=== PATIENT | female | born 1950 ===

== ENCOUNTER 2021-08-22 13:13 | Inpatient (IN) | payer MEDICARE ==
[2021-08-22 14:05] LABS: #Lymphocytes 1.4 thou/uL (1.20-3.40); #Monocytes 1.2 thou/uL (0.11-0.59); #Neutrophils 10.3 thou/uL (1.40-6.50); %Basophils 0.3 % (0.0-1.0); %Eosinophils 0.3 % (0.0-10.0); %Lymphocytes 10.5 % (21.0-51.0); %Monocytes 9.4 % (0.0-10.0); %Neutrophils 79.5 % (42.0-75.0); Hemoglobin 8.1 g/dL (12.0-16.0); Mean Corpuscular HGB CONC 31.5 g/dL (32.0-36.0); Mean Corpuscular Hemoglobin 29.3 pg (27.0-31.0); Mean Corpuscular Volume 92.9 fL (78.0-98.0); Mean Platelet Volume 7.7 fL (7.4-10.4); Platelet Count 358 thou/uL (130-400); RBC Distribution Width 13.8 % (11.5-14.5); Red Blood Cell (RBC) Count 2.75 mill/uL (4.20-5.40); White Blood Cell (WBC) Count 12.9 thou/uL (4.8-10.8)
[2021-08-22 14:21] LABS: ALT (SGPT) 28 U/L (8-55); AST (SGOT) 40 U/L (5-34); Albumin 3.4 g/dL (3.4-4.8); Alkaline Phosphatase 87 U/L (40-110); Anion Gap 17 mmol/L (10-20); BUN (Urea Nitrogen) 20 mg/dL (9.8-20.1); Bilirubin, Total 0.7 mg/dL (0.2-1.2); Calc. Creatinine Clearance 0 mL/min (70-130); Calcium 8.7 mg/dL (7.8-10.44); Carbon Dioxide 25 mmol/L (23-31); Chloride 95 mmol/L (98-107); Globulin 3.9 g/dL (2.4-3.5); Glucose 139 mg/dL (80-115); Potassium 3.1 mmol/L (3.5-5.1); Protein, Total 7.3 g/dL (5.8-8.1); Sodium 134 mmol/L (136-145)
[2021-08-22 14:43] LABS: CKMB 1.3 ng/mL (0-6.6)
[2021-08-22] MEDS ORDERED: Dextrose 5% in Water 1,000 ML IV PRN (17:02)
[2021-08-22] MEDS ORDERED: Dextrose 50% Abboject 50 ML SYRINGE SLOW IVP PRN (17:02)
[2021-08-22] MEDS ORDERED: Senokot S 8.6-50 MG TAB PO PRN (17:11)
[2021-08-22] MEDS ORDERED: Cefepime 1 GM in Sodium Chloride 0.9% 100 ML IVPB SCH ×2 (18:00→23:45)
[2021-08-22] MEDS ORDERED: Vancomycin 1 GM in Premix Bag 1 BAG IVPB SCH (18:00)
[2021-08-22 18:53] LABS: SARS-CoV-2 NAA Rapid Test Not Detected (NotDetected)
[2021-08-22] MEDS: Carvedilol 6.25 MG TAB PO SCH (21:40)
[2021-08-22] MEDS: Atorvastatin Calcium 40 MG TAB PO SCH (21:44)
[2021-08-22] MEDS: Famotidine 20 MG TAB PO SCH (21:44)
[2021-08-22] MEDS: Gabapentin 100 MG CAP PO SCH (21:44)
[2021-08-22] MEDS: Nicotine 14 MG PATCH TD SCH ×2 (21:45→21:47)
[2021-08-22] MEDS ORDERED: Vancomycin 1.5 GRAM/300 ML BAG 1.5 GM in Premix Bag 1 BAG IVPB SCH (23:45)
[2021-08-22] MEDS ORDERED: Cefepime 2 GM in Sodium Chloride 0.9% 100 ML IVPB SCH (23:45)
[2021-08-22 23:53] VITALS: BMI 29.9
[2021-08-23] MEDS ORDERED: Vancomycin Diaylsis Sliding Scale (Wt 71-99) FS SCH (00:15)
[2021-08-23] MEDS: HYDROcodone/Acetaminophen 5/325 mg Tablet PO PRN ×2 (01:44→18:44)
[2021-08-23 05:16] LABS: #Eosinphils 0.1 thou/uL (0.0-0.7); #Lymphocytes 1.6 thou/uL (1.20-3.40); #Monocytes 1.4 thou/uL (0.11-0.59); #Neutrophils 11.9 thou/uL (1.40-6.50); %Basophils 0.1 % (0.0-1.0); %Eosinophils 0.4 % (0.0-10.0); %Lymphocytes 10.7 % (21.0-51.0); %Monocytes 9.4 % (0.0-10.0); %Neutrophils 79.4 % (42.0-75.0); Hemoglobin 7.8 g/dL (12.0-16.0); Mean Corpuscular HGB CONC 31.3 g/dL (32.0-36.0); Mean Corpuscular Hemoglobin 29.3 pg (27.0-31.0); Mean Corpuscular Volume 93.6 fL (78.0-98.0); Mean Platelet Volume 7.7 fL (7.4-10.4); Platelet Count 387 thou/uL (130-400); Red Blood Cell (RBC) Count 2.65 mill/uL (4.20-5.40)
[2021-08-23 05:38] LABS: ALT (SGPT) 24 U/L (8-55); AST (SGOT) 34 U/L (5-34); Albumin 3.2 g/dL (3.4-4.8); Alkaline Phosphatase 77 U/L (40-110); Anion Gap 20 mmol/L (10-20); BUN (Urea Nitrogen) 25 mg/dL (9.8-20.1); Bilirubin, Total 0.7 mg/dL (0.2-1.2); Calc. Creatinine Clearance 16 mL/min (70-130); Calcium 8.7 mg/dL (7.8-10.44); Carbon Dioxide 23 mmol/L (23-31); Chloride 96 mmol/L (98-107); Globulin 3.8 g/dL (2.4-3.5); Glucose 79 mg/dL (80-115); Potassium 3.1 mmol/L (3.5-5.1); Sodium 136 mmol/L (136-145)
[2021-08-23 07:11] LABS: Vancomycin, Random 29.3 ug/mL (See Comment)
[2021-08-23] MEDS: Carvedilol 6.25 MG TAB PO SCH ×2 (08:06→18:45)
[2021-08-23] MEDS ORDERED: Midazolam HCl 2 mg/2 ml Vial ONE (10:40)
[2021-08-23] MEDS ORDERED: Fentanyl 100 MCG/2 ML VIAL ONE (10:40)
[2021-08-23] MEDS ORDERED: Bupivacaine PF 0.5% 30 ML VIAL ONE (11:02)
[2021-08-23] MEDS ORDERED: Heparin 5,000 UNITS/ML VIAL ONE (11:02)
[2021-08-23] MEDS ORDERED: Protamine Sulfate 50 MG/5 ML VIAL ONE (11:02)
[2021-08-23] MEDS ORDERED: Lidocaine 1% w/Epinephrine 1:100K 20 ML VIAL ONE (11:02)
[2021-08-23] MEDS ORDERED: fentaNYL Citrate/PF 100 MCG/2 ML SYRINGE ONE (11:09)
[2021-08-23] MEDS ORDERED: Ondansetron PF 4 MG/2 ML Vial ONE (11:34)
[2021-08-23] MEDS ORDERED: PROPOFOL 200 MG/20 ML VIAL ONE (11:34)
[2021-08-23] MEDS ORDERED: Lidocaine 1% PF 5 ML VIAL ONE (11:34)
[2021-08-23] MEDS ORDERED: Bupivacaine HCl 0.5%/Epinephrine 1:200,000/PF 30 ml Vial ONE (11:34)
[2021-08-23] MEDS ORDERED: Ondansetron HCl/PF 4 MG/2 ML Vial IVP PRN (13:40)
[2021-08-23] MEDS ORDERED: Promethazine HCl 25 MG/ML VIAL IVPB PRN (13:40)
[2021-08-23] MEDS ORDERED: Promethazine HCl 25 MG/ML VIAL IM PRN (13:40)
[2021-08-23] MEDS: Enoxaparin Sodium 30 MG/0.3 ML SYRINGE SC SCH (14:21)
[2021-08-23] MEDS: Clopidogrel Bisulfate 75 MG TAB PO SCH (14:21)
[2021-08-23] MEDS: Gabapentin 100 MG CAP PO SCH ×3 (14:21→20:15)
[2021-08-23] MEDS: Aspirin 81 mg Enteric Coated Tablet PO SCH (14:21)
[2021-08-23] MEDS: Amlodipine 10 MG TAB PO SCH (17:40)
[2021-08-23] MEDS: Nicotine 14 MG PATCH TD SCH (17:40)
[2021-08-23 18:49] LABS: HBSAB Concentration Less than 8.00 mIU/mL; HBSAg Index 0.25 S/CO (0-0.99); Hep B Surf AB Non-Reactive (NonReactive); Hep B Surf Ag Non-Reactive S/CO (NonReactive)
[2021-08-23] MEDS: Atorvastatin Calcium 40 MG TAB PO SCH (20:15)
[2021-08-23] MEDS: Famotidine 20 MG TAB PO SCH (20:15)
[2021-08-23] MEDS: Cefepime 0.5 GM in Sodium Chloride 0.9% 100 ML IVPB SCH (23:44)
[2021-08-24] MEDS: HYDROcodone/Acetaminophen 5/325 mg Tablet PO PRN ×4 (05:21→21:37)
[2021-08-24 05:51] LABS: #Eosinphils 0.2 thou/uL (0.0-0.7); #Lymphocytes 0.9 thou/uL (1.20-3.40); #Neutrophils 11.1 thou/uL (1.40-6.50); %Basophils 0.1 % (0.0-1.0); %Eosinophils 1.6 % (0.0-10.0); %Lymphocytes 6.7 % (21.0-51.0); %Monocytes 7.3 % (0.0-10.0); %Neutrophils 84.2 % (42.0-75.0); Hemoglobin 9.4 g/dL (12.0-16.0); Mean Corpuscular HGB CONC 31.6 g/dL (32.0-36.0); Mean Corpuscular Hemoglobin 28.7 pg (27.0-31.0); Mean Corpuscular Volume 90.8 fL (78.0-98.0); Mean Platelet Volume 7.9 fL (7.4-10.4); Platelet Count 357 thou/uL (130-400); Red Blood Cell (RBC) Count 3.26 mill/uL (4.20-5.40); White Blood Cell (WBC) Count 13.2 thou/uL (4.8-10.8)
[2021-08-24 06:09] LABS: Anion Gap 20 mmol/L (10-20); BUN (Urea Nitrogen) 36 mg/dL (9.8-20.1); Calc. Creatinine Clearance 13 mL/min (70-130); Calcium 8.2 mg/dL (7.8-10.44); Carbon Dioxide 22 mmol/L (23-31); Chloride 98 mmol/L (98-107); Glucose 95 mg/dL (80-115); Potassium 3.5 mmol/L (3.5-5.1); Sodium 136 mmol/L (136-145)
[2021-08-24] MEDS: Carvedilol 6.25 MG TAB PO SCH ×2 (08:23→19:16)
[2021-08-24] MEDS: Amlodipine 10 MG TAB PO SCH (08:24)
[2021-08-24] MEDS: Aspirin 81 mg Enteric Coated Tablet PO SCH (08:26)
[2021-08-24] MEDS: Clopidogrel Bisulfate 75 MG TAB PO SCH (08:26)
[2021-08-24] MEDS: Gabapentin 100 MG CAP PO SCH ×3 (08:27→20:37)
[2021-08-24] MEDS: Enoxaparin Sodium 30 MG/0.3 ML SYRINGE SC SCH (08:28)
[2021-08-24] MEDS ORDERED: Epoetin (ESRD) 10,000 UNITS/ML VIAL IVP SCH (08:30)
[2021-08-24] MEDS ORDERED: Heparin 10,000 UNITS/ 10 ML VIAL ONE (08:47)
[2021-08-24 11:26] LABS: Vancomycin, Random 19.5 ug/mL (See Comment)
[2021-08-24] MEDS ORDERED: Vancomycin HCl 500 MG in Sodium Chloride 0.9% 100 ML IVPB SCH (17:00)
[2021-08-24] MEDS: Nicotine 14 MG PATCH TD SCH (19:17)
[2021-08-24] MEDS: Acetaminophen 325 MG TAB PO PRN (19:17)
[2021-08-24] MEDS: Atorvastatin Calcium 40 MG TAB PO SCH (20:37)
[2021-08-24] MEDS: Famotidine 20 MG TAB PO SCH (20:37)
[2021-08-24] MEDS: Cefepime 0.5 GM in Sodium Chloride 0.9% 100 ML IVPB SCH ×2 (23:29→23:53)
[2021-08-25 05:25] LABS: #Eosinphils 0.1 thou/uL (0.0-0.7); #Lymphocytes 1.6 thou/uL (1.20-3.40); #Monocytes 1.3 thou/uL (0.11-0.59); #Neutrophils 9.6 thou/uL (1.40-6.50); %Basophils 0.2 % (0.0-1.0); %Eosinophils 0.6 % (0.0-10.0); %Lymphocytes 12.5 % (21.0-51.0); %Monocytes 10.1 % (0.0-10.0); %Neutrophils 76.6 % (42.0-75.0); Hemoglobin 9.2 g/dL (12.0-16.0); Mean Corpuscular HGB CONC 31.6 g/dL (32.0-36.0); Mean Corpuscular Hemoglobin 28.9 pg (27.0-31.0); Mean Corpuscular Volume 91.4 fL (78.0-98.0); Mean Platelet Volume 8.2 fL (7.4-10.4); Platelet Count 353 thou/uL (130-400); RBC Distribution Width 14.6 % (11.5-14.5); White Blood Cell (WBC) Count 12.6 thou/uL (4.8-10.8)
[2021-08-25 05:49] LABS: Anion Gap 16 mmol/L (10-20); BUN (Urea Nitrogen) 17 mg/dL (9.8-20.1); Calc. Creatinine Clearance 23 mL/min (70-130); Calcium 8.4 mg/dL (7.8-10.44); Carbon Dioxide 26 mmol/L (23-31); Chloride 98 mmol/L (98-107); Glucose 127 mg/dL (80-115); Potassium 3.4 mmol/L (3.5-5.1); Sodium 137 mmol/L (136-145)
[2021-08-25] MEDS: Aspirin 81 mg Enteric Coated Tablet PO SCH (08:20)
[2021-08-25] MEDS: Clopidogrel Bisulfate 75 MG TAB PO SCH (08:21)
[2021-08-25] MEDS: Gabapentin 100 MG CAP PO SCH ×3 (08:21→20:00)
[2021-08-25] MEDS: Amlodipine 10 MG TAB PO SCH (08:22)
[2021-08-25] MEDS: Carvedilol 6.25 MG TAB PO SCH ×2 (08:22→17:08)
[2021-08-25] MEDS: Enoxaparin Sodium 30 MG/0.3 ML SYRINGE SC SCH (08:22)
[2021-08-25] MEDS: HYDROcodone/Acetaminophen 5/325 mg Tablet PO PRN ×3 (08:22→23:20)
[2021-08-25] MEDS: Triple Antibiotic Oint 1 GM Packet TOP SCH (08:28)
[2021-08-25] MEDS ORDERED: Potassium Chloride 20 MEQ TAB PO SCH (12:15)
[2021-08-25] MEDS: Nicotine 14 MG PATCH TD SCH (19:35)
[2021-08-25] MEDS: Atorvastatin Calcium 40 MG TAB PO SCH (19:59)
[2021-08-25] MEDS: Famotidine 20 MG TAB PO SCH (20:01)
[2021-08-25] MEDS: Cefepime 0.5 GM, Admixture Fee 1 EACH in Sodium Chloride 0.9% 100 ML IVPB SCH (23:19)
[2021-08-26 07:36] LABS: Vancomycin, Random 16.1 ug/mL (See Comment)
[2021-08-26] MEDS: NIFEdipine XL 30 MG TAB PO SCH (08:39)
[2021-08-26] MEDS: Aspirin 81 mg Enteric Coated Tablet PO SCH (08:40)
[2021-08-26] MEDS: Clopidogrel Bisulfate 75 MG TAB PO SCH (08:40)
[2021-08-26] MEDS: Triple Antibiotic Oint 1 GM Packet TOP SCH (08:41)
[2021-08-26] MEDS: Carvedilol 6.25 MG TAB PO SCH ×2 (08:41→20:00)
[2021-08-26] MEDS: Gabapentin 100 MG CAP PO SCH ×3 (08:41→20:02)
[2021-08-26] MEDS: Enoxaparin Sodium 30 MG/0.3 ML SYRINGE SC SCH (08:42)
[2021-08-26] MEDS ORDERED: Heparin 10,000 UNITS/ 10 ML VIAL ONE (08:49)
[2021-08-26] MEDS: Insulin Regular 300 UNITS/3 ML VIAL SC PRN (12:10)
[2021-08-26] MEDS ORDERED: Vancomycin HCl 500 MG in Sodium Chloride 0.9% 100 ML IVPB SCH (17:00)
[2021-08-26] MEDS: Epoetin (ESRD) 10,000 UNITS/ML VIAL IVP SCH (18:42)
[2021-08-26] MEDS: Nicotine 14 MG PATCH TD SCH (20:02)
[2021-08-26] MEDS: Atorvastatin Calcium 40 MG TAB PO SCH (20:02)
[2021-08-26] MEDS: Famotidine 20 MG TAB PO SCH (20:02)
[2021-08-26] MEDS: HYDROcodone/Acetaminophen 5/325 mg Tablet PO PRN (20:03)
[2021-08-26] MEDS: Cefepime 0.5 GM, Admixture Fee 1 EACH in Sodium Chloride 0.9% 100 ML IVPB SCH (22:14)
[2021-08-27] MEDS ORDERED: Iopamidol 370 76% 50 ML VIAL FS ONE (08:44)
[2021-08-27] MEDS: Triple Antibiotic Oint 1 GM Packet TOP SCH (09:00)
[2021-08-27] MEDS: Gabapentin 100 MG CAP PO SCH ×3 (09:03→20:53)
[2021-08-27] MEDS: Carvedilol 6.25 MG TAB PO SCH ×2 (09:03→18:38)
[2021-08-27] MEDS: Enoxaparin Sodium 30 MG/0.3 ML SYRINGE SC SCH (09:30)
[2021-08-27] MEDS: Aspirin 81 mg Enteric Coated Tablet PO SCH (09:30)
[2021-08-27] MEDS: NIFEdipine XL 30 MG TAB PO SCH (09:30)
[2021-08-27] MEDS: Clopidogrel Bisulfate 75 MG TAB PO SCH (09:30)
[2021-08-27] MEDS ORDERED: hydrALAZINE 20 MG/ML VIAL ONE (10:01)
[2021-08-27] MEDS ORDERED: Fentanyl 100 MCG/2 ML VIAL ONE (10:28)
[2021-08-27] MEDS: Fentanyl 100 MCG/2 ML VIAL SLOW IVP PRN (10:29)
[2021-08-27] MEDS ORDERED: HYDROcodone/Acetaminophen 5/325 mg Tablet ONE (11:12)
[2021-08-27] MEDS: HYDROcodone/Acetaminophen 5/325 mg Tablet PO PRN (11:13)
[2021-08-27] MEDS ORDERED: [UNRECOGNIZED DRUG - REMARK] IVPB PRN (14:30)
[2021-08-27 15:44] LABS: #Eosinphils 0.1 thou/uL (0.0-0.7); #Lymphocytes 1.4 thou/uL (1.20-3.40); #Neutrophils 8.5 thou/uL (1.40-6.50); %Basophils 0.2 % (0.0-1.0); %Eosinophils 0.5 % (0.0-10.0); %Monocytes 8.7 % (0.0-10.0); %Neutrophils 77.6 % (42.0-75.0); Mean Corpuscular HGB CONC 30.7 g/dL (32.0-36.0); Mean Platelet Volume 7.9 fL (7.4-10.4); Platelet Count 407 thou/uL (130-400); RBC Distribution Width 14.5 % (11.5-14.5); Red Blood Cell (RBC) Count 3.21 mill/uL (4.20-5.40)
[2021-08-27 16:07] LABS: Anion Gap 19 mmol/L (10-20); BUN (Urea Nitrogen) 22 mg/dL (9.8-20.1); Calc. Creatinine Clearance 21 mL/min (70-130); Calcium 8.5 mg/dL (7.8-10.44); Carbon Dioxide 24 mmol/L (23-31); Chloride 97 mmol/L (98-107); Glucose 182 mg/dL (80-115); Potassium 3.6 mmol/L (3.5-5.1); Sodium 136 mmol/L (136-145)
[2021-08-27] MEDS: Nicotine 14 MG PATCH TD SCH (18:37)
[2021-08-27] MEDS: Atorvastatin Calcium 40 MG TAB PO SCH (20:54)
[2021-08-27] MEDS: hydrALAZINE 25 MG TAB PO SCH (20:54)
[2021-08-27] MEDS: Famotidine 20 MG TAB PO SCH (20:55)
[2021-08-28 05:59] LABS: #Basophils 0.1 thou/uL (0.0-0.2); #Eosinphils 0.1 thou/uL (0.0-0.7); #Lymphocytes 1.4 thou/uL (1.20-3.40); #Monocytes 1.1 thou/uL (0.11-0.59); #Neutrophils 7.9 thou/uL (1.40-6.50); %Basophils 0.5 % (0.0-1.0); %Eosinophils 1.4 % (0.0-10.0); %Lymphocytes 13.2 % (21.0-51.0); %Monocytes 10.3 % (0.0-10.0); %Neutrophils 74.6 % (42.0-75.0); Hemoglobin 9.4 g/dL (12.0-16.0); Mean Corpuscular HGB CONC 30.8 g/dL (32.0-36.0); Mean Platelet Volume 8.1 fL (7.4-10.4); Platelet Count 425 thou/uL (130-400); RBC Distribution Width 14.6 % (11.5-14.5); Red Blood Cell (RBC) Count 3.35 mill/uL (4.20-5.40); White Blood Cell (WBC) Count 10.6 thou/uL (4.8-10.8)
[2021-08-28] MEDS: HYDROcodone/Acetaminophen 5/325 mg Tablet PO PRN ×2 (06:10→10:14)
[2021-08-28 06:30] LABS: Anion Gap 18 mmol/L (10-20); BUN (Urea Nitrogen) 27 mg/dL (9.8-20.1); Calc. Creatinine Clearance 18 mL/min (70-130); Calcium 8.7 mg/dL (7.8-10.44); Carbon Dioxide 25 mmol/L (23-31); Chloride 97 mmol/L (98-107); Glucose 158 mg/dL (80-115); Iron 18 ug/dL (50-170); Iron Binding Capacity, Total 101 mcg/dL (265-497); Potassium 3.3 mmol/L (3.5-5.1); Sodium 137 mmol/L (136-145)
[2021-08-28 06:36] LABS: Iron 18 ug/dL (50-170); Iron Binding Capacity, Total 100 mcg/dL (265-497)
[2021-08-28] MEDS: Triple Antibiotic Oint 1 GM Packet TOP SCH (07:30)
[2021-08-28 07:33] LABS: Vancomycin, Random 17.4 ug/mL (See Comment)
[2021-08-28] MEDS ORDERED: Heparin 10,000 UNITS/ 10 ML VIAL ONE (08:48)
[2021-08-28] MEDS ORDERED: Iron, Sodium Ferric Gluconate 125 MG in Sodium Chloride 0.9% 100 ML IVPB SCH (09:00)
[2021-08-28] MEDS: hydrALAZINE 25 MG TAB PO SCH ×2 (12:55→20:33)
[2021-08-28] MEDS: Carvedilol 6.25 MG TAB PO SCH ×2 (12:55→16:58)
[2021-08-28] MEDS: Gabapentin 100 MG CAP PO SCH ×3 (12:56→20:31)
[2021-08-28] MEDS: Losartan 25 MG TAB PO SCH (12:56)
[2021-08-28] MEDS: NIFEdipine XL 30 MG TAB PO SCH (12:57)
[2021-08-28] MEDS: Aspirin 81 mg Enteric Coated Tablet PO SCH (15:40)
[2021-08-28] MEDS: Enoxaparin Sodium 30 MG/0.3 ML SYRINGE SC SCH (15:40)
[2021-08-28] MEDS: Clopidogrel Bisulfate 75 MG TAB PO SCH (15:40)
[2021-08-28] MEDS: Epoetin (ESRD) 10,000 UNITS/ML VIAL IVP SCH (16:18)
[2021-08-28] MEDS: Nicotine 14 MG PATCH TD SCH (17:29)
[2021-08-28] MEDS: Atorvastatin Calcium 40 MG TAB PO SCH (20:30)
[2021-08-28] MEDS: Famotidine 20 MG TAB PO SCH (20:31)
[2021-08-29] MEDS: HYDROcodone/Acetaminophen 5/325 mg Tablet PO PRN ×3 (03:20→16:28)
[2021-08-29 05:34] LABS: Anion Gap 19 mmol/L (10-20); BUN (Urea Nitrogen) 18 mg/dL (9.8-20.1); Calc. Creatinine Clearance 23 mL/min (70-130); Calcium 8.6 mg/dL (7.8-10.44); Carbon Dioxide 23 mmol/L (23-31); Chloride 99 mmol/L (98-107); Glucose 140 mg/dL (80-115); Potassium 3.4 mmol/L (3.5-5.1); Sodium 138 mmol/L (136-145)
[2021-08-29] MEDS ORDERED: fentaNYL Citrate/PF 100 MCG/2 ML SYRINGE ONE (06:46)
[2021-08-29] MEDS ORDERED: CEFAZOLIN 2 GM VIAL ONE (07:00)
[2021-08-29] MEDS ORDERED: Phenylephrine 10 MG/ML VIAL ONE (07:01)
[2021-08-29] MEDS ORDERED: Lidocaine 1% PF 5 ML VIAL ONE (07:05)
[2021-08-29] MEDS ORDERED: PROPOFOL 200 MG/20 ML VIAL ONE (07:05)
[2021-08-29] MEDS ORDERED: Ondansetron PF 4 MG/2 ML Vial ONE (07:05)
[2021-08-29] MEDS ORDERED: PACU-Morphine 4MG/ML VIAL SLOW IVP PRN (08:17)
[2021-08-29] MEDS ORDERED: Promethazine HCl 25 MG/ML VIAL IVPB PRN (08:17)
[2021-08-29] MEDS ORDERED: Promethazine HCl 25 MG/ML VIAL IM PRN (08:17)
[2021-08-29] MEDS ORDERED: Ondansetron HCl/PF 4 MG/2 ML Vial IVP PRN (08:17)
[2021-08-29] MEDS: Polyethylene Glycol 3350 17 GM Packet PO SCH (10:25)
[2021-08-29] MEDS: Carvedilol 6.25 MG TAB PO SCH ×2 (10:25→16:28)
[2021-08-29] MEDS: Losartan 25 MG TAB PO SCH (10:27)
[2021-08-29] MEDS: Clopidogrel Bisulfate 75 MG TAB PO SCH (10:27)
[2021-08-29] MEDS: hydrALAZINE 25 MG TAB PO SCH ×2 (10:27→20:03)
[2021-08-29] MEDS: Gabapentin 100 MG CAP PO SCH ×3 (10:28→20:03)
[2021-08-29] MEDS: Enoxaparin Sodium 30 MG/0.3 ML SYRINGE SC SCH (10:29)
[2021-08-29] MEDS: Triple Antibiotic Oint 1 GM Packet TOP SCH (10:29)
[2021-08-29] MEDS: NIFEdipine XL 30 MG TAB PO SCH (10:29)
[2021-08-29] MEDS: Aspirin 81 mg Enteric Coated Tablet PO SCH (10:30)
[2021-08-29 12:03] LABS: SARS-CoV-2 PCR by NAA Not Detected (NotDetected)
[2021-08-29] MEDS: Insulin Regular 300 UNITS/3 ML VIAL SC PRN ×2 (12:10→15:49)
[2021-08-29] MEDS: Fentanyl 100 MCG/2 ML VIAL SLOW IVP PRN (12:10)
[2021-08-29] MEDS: Ergocalciferol 1.25 MG(50,000 UNITS) CAP PO SCH (12:10)
[2021-08-29] MEDS ORDERED: Bisacodyl 5 MG TAB PO SCH (12:15)
[2021-08-29] MEDS: Nicotine 14 MG PATCH TD SCH (18:46)
[2021-08-29] MEDS: Atorvastatin Calcium 40 MG TAB PO SCH (20:03)
[2021-08-29] MEDS: Senokot S 8.6-50 MG TAB PO SCH (20:03)
[2021-08-29] MEDS: Famotidine 20 MG TAB PO SCH (20:03)
[2021-08-30 04:03] LABS: #Basophils 0.1 thou/uL (0.0-0.2); #Lymphocytes 1.2 thou/uL (1.20-3.40); #Monocytes 1.4 thou/uL (0.11-0.59); #Neutrophils 12.2 thou/uL (1.40-6.50); %Basophils 0.5 % (0.0-1.0); %Eosinophils 0.2 % (0.0-10.0); %Lymphocytes 8.2 % (21.0-51.0); %Monocytes 9.4 % (0.0-10.0); %Neutrophils 81.7 % (42.0-75.0); Hemoglobin 8.8 g/dL (12.0-16.0); Mean Corpuscular HGB CONC 31.1 g/dL (32.0-36.0); Mean Corpuscular Hemoglobin 28.2 pg (27.0-31.0); Mean Corpuscular Volume 90.8 fL (78.0-98.0); Mean Platelet Volume 8.5 fL (7.4-10.4); Platelet Count 373 thou/uL (130-400); White Blood Cell (WBC) Count 14.9 thou/uL (4.8-10.8)
[2021-08-30 04:29] LABS: ALT (SGPT) 10 U/L (8-55); AST (SGOT) 34 U/L (5-34); Albumin 2.9 g/dL (3.4-4.8); Alkaline Phosphatase 102 U/L (40-110); Anion Gap 20 mmol/L (10-20); BUN (Urea Nitrogen) 29 mg/dL (9.8-20.1); Bilirubin, Total 0.6 mg/dL (0.2-1.2); Calc. Creatinine Clearance 17 mL/min (70-130); Calcium 8.5 mg/dL (7.8-10.44); Carbon Dioxide 22 mmol/L (23-31); Chloride 98 mmol/L (98-107); Globulin 4.1 g/dL (2.4-3.5); Glucose 233 mg/dL (80-115); Potassium 3.5 mmol/L (3.5-5.1); Sodium 136 mmol/L (136-145)
[2021-08-30] MEDS: Insulin Regular 300 UNITS/3 ML VIAL SC PRN ×2 (05:36→16:16)
[2021-08-30] MEDS: Fentanyl 100 MCG/2 ML VIAL SLOW IVP PRN (11:44)
[2021-08-30] MEDS: Polyethylene Glycol 3350 17 GM Packet PO SCH (12:34)
[2021-08-30] MEDS: Aspirin 81 mg Enteric Coated Tablet PO SCH (12:34)
[2021-08-30] MEDS: NIFEdipine XL 30 MG TAB PO SCH (12:34)
[2021-08-30] MEDS: Enoxaparin Sodium 30 MG/0.3 ML SYRINGE SC SCH (12:34)
[2021-08-30] MEDS: Carvedilol 6.25 MG TAB PO SCH ×2 (12:35→16:15)
[2021-08-30] MEDS: Losartan 25 MG TAB PO SCH (12:35)
[2021-08-30] MEDS: Senokot S 8.6-50 MG TAB PO SCH ×2 (12:36→21:31)
[2021-08-30] MEDS: Gabapentin 100 MG CAP PO SCH ×3 (12:36→21:29)
[2021-08-30] MEDS: hydrALAZINE 25 MG TAB PO SCH ×2 (12:36→21:30)
[2021-08-30] MEDS: Clopidogrel Bisulfate 75 MG TAB PO SCH (12:37)
[2021-08-30] MEDS: Epoetin (ESRD) 10,000 UNITS/ML VIAL IVP SCH (12:37)
[2021-08-30] MEDS: Triple Antibiotic Oint 1 GM Packet TOP SCH (12:38)
[2021-08-30] MEDS ORDERED: Heparin 10,000 UNITS/ 10 ML VIAL ONE (12:42)
[2021-08-30] MEDS: Iron, Sodium Ferric Gluconate 250 MG in Sodium Chloride 0.9% 250 ML 250 ML IVPB SCH (13:13)
[2021-08-30] MEDS ORDERED: Carvedilol 6.25 MG TAB PO SCH (17:21)
[2021-08-30] MEDS: Nicotine 14 MG PATCH TD SCH (18:03)
[2021-08-30] MEDS: Atorvastatin Calcium 40 MG TAB PO SCH (21:28)
[2021-08-30] MEDS: Famotidine 20 MG TAB PO SCH (21:29)
[2021-08-30] MEDS: Acetaminophen 325 MG TAB PO PRN (21:29)
[2021-08-31] MEDS: HYDROcodone/Acetaminophen 5/325 mg Tablet PO PRN (01:01)
[2021-08-31 08:27] LABS: Actual Bicarbonate (HCO3a) 27.4 mEq/L (22-28); Base Excess (BEa) 3.8 mEq/L (-2.0 to +3.0); CO2 Tension 37.5 mmHg (35.0-45.0); Calcium, Ionized (arterial) 1.08 mmol/L (1.12-1.30); Carboxyhemoglobin (COHb) 0.3 gm% (0.0-3.0); Hemoglobin (Hb) 9.7 g/dL (12.0-16.0); O2 Tension (PaO2), arterial 80.7 mmHg (> 80.0); Potassium - ABG Lab 3.34 mmol/L (3.70-5.30); pH, Arterial 7.48 (7.35-7.45)
[2021-08-31 08:29] LABS: Puncture Site RRA
[2021-08-31] MEDS ORDERED: Insulin Glargine 30 UNITS/0.3 ML VIAL SC SCH (09:00)
[2021-08-31] MEDS: Ergocalciferol 1.25 MG(50,000 UNITS) CAP PO SCH (09:22)
[2021-08-31] MEDS: NIFEdipine XL 30 MG TAB PO SCH (09:22)
[2021-08-31] MEDS: Gabapentin 100 MG CAP PO SCH ×3 (09:22→22:34)
[2021-08-31] MEDS: Polyethylene Glycol 3350 17 GM Packet PO SCH (09:23)
[2021-08-31] MEDS: Triple Antibiotic Oint 1 GM Packet TOP SCH (09:23)
[2021-08-31] MEDS: Aspirin 81 mg Enteric Coated Tablet PO SCH (09:24)
[2021-08-31] MEDS: Losartan 25 MG TAB PO SCH (09:24)
[2021-08-31] MEDS: Clopidogrel Bisulfate 75 MG TAB PO SCH (09:24)
[2021-08-31] MEDS: Carvedilol 25 MG TAB PO SCH ×2 (09:25→16:49)
[2021-08-31] MEDS: hydrALAZINE 25 MG TAB PO SCH ×2 (09:25→22:34)
[2021-08-31] MEDS: Senokot S 8.6-50 MG TAB PO SCH ×2 (09:25→22:35)
[2021-08-31] MEDS: Enoxaparin Sodium 30 MG/0.3 ML SYRINGE SC SCH (09:30)
[2021-08-31] MEDS: Insulin Regular 300 UNITS/3 ML VIAL SC PRN ×2 (15:33→18:28)
[2021-08-31] MEDS: Acetaminophen 325 MG TAB PO PRN (15:40)
[2021-08-31] MEDS: Nicotine 14 MG PATCH TD SCH (16:50)
[2021-08-31 22:30] LABS: Actual Bicarbonate (HCO3a) 29.8 mEq/L (22-28); Analyzer IN Cardio OR; Base Excess (BEa) 6.3 mEq/L (-2.0 to +3.0); CO2 Tension 38.6 mmHg (35.0-45.0); Calcium, Ionized (arterial) 1.09 mmol/L (1.12-1.30); Carboxyhemoglobin (COHb) 0.5 gm% (0.0-3.0); Hemoglobin (Hb) 9.6 g/dL (12.0-16.0); O2 Tension (PaO2), arterial 123.5 mmHg (> 80.0); Potassium - ABG Lab 3.48 mmol/L (3.70-5.30); pH, Arterial 7.51 (7.35-7.45)
[2021-08-31 22:32] LABS: Puncture Site RBR
[2021-08-31] MEDS: Atorvastatin Calcium 40 MG TAB PO SCH (22:33)
[2021-08-31] MEDS: Famotidine 20 MG TAB PO SCH (22:33)
[2021-09-01] MEDS ORDERED: Acetaminophen 650 MG Suppository PR PRN (03:27)
[2021-09-01] MEDS ORDERED: Vancomycin 1 GM in Premix Bag 1 BAG IVPB SCH (08:00)
[2021-09-01] MEDS ORDERED: Vancomycin Diaylsis Sliding Scale (Wt 71-99) FS SCH (08:15)
[2021-09-01] MEDS ORDERED: Cefepime 2 GM in Sodium Chloride 0.9% 100 ML IVPB SCH (09:00)
[2021-09-01] MEDS ORDERED: Vancomycin HCl 1.25 GM in Sodium Chloride 0.9% 250 ML 250 ML IVPB SCH (09:00)
[2021-09-01] MEDS: Aspirin 81 mg Enteric Coated Tablet PO SCH (09:02)
[2021-09-01] MEDS: NIFEdipine XL 30 MG TAB PO SCH (09:02)
[2021-09-01] MEDS: Senokot S 8.6-50 MG TAB PO SCH ×2 (09:02→20:00)
[2021-09-01] MEDS: Losartan 25 MG TAB PO SCH (09:03)
[2021-09-01] MEDS: Triple Antibiotic Oint 1 GM Packet TOP SCH (09:03)
[2021-09-01] MEDS: Clopidogrel Bisulfate 75 MG TAB PO SCH (09:03)
[2021-09-01] MEDS: Gabapentin 100 MG CAP PO SCH ×3 (09:03→20:01)
[2021-09-01] MEDS: Carvedilol 25 MG TAB PO SCH ×2 (09:03→16:35)
[2021-09-01] MEDS: Polyethylene Glycol 3350 17 GM Packet PO SCH (09:04)
[2021-09-01] MEDS: Enoxaparin Sodium 30 MG/0.3 ML SYRINGE SC SCH (09:04)
[2021-09-01] MEDS: Insulin Glargine 30 UNITS/0.3 ML VIAL SC SCH (09:05)
[2021-09-01] MEDS: hydrALAZINE 25 MG TAB PO SCH ×2 (09:06→20:13)
[2021-09-01] MEDS: HYDROcodone/Acetaminophen 5/325 mg Tablet PO PRN (11:29)
[2021-09-01] MEDS: Insulin Regular 300 UNITS/3 ML VIAL SC PRN (17:16)
[2021-09-01] MEDS: Nicotine 14 MG PATCH TD SCH (17:32)
[2021-09-01] MEDS: Atorvastatin Calcium 40 MG TAB PO SCH (20:02)
[2021-09-01] MEDS: Famotidine 20 MG TAB PO SCH (20:02)
[2021-09-02 07:16] LABS: Vancomycin, Random 23.2 ug/mL (See Comment)
[2021-09-02] MEDS: Acetaminophen 325 MG TAB PO PRN (08:26)
[2021-09-02] MEDS ORDERED: Heparin 10,000 UNITS/ 10 ML VIAL ONE (08:53)
[2021-09-02] MEDS: HYDROcodone/Acetaminophen 5/325 mg Tablet PO PRN ×2 (10:44→16:26)
[2021-09-02] MEDS: Carvedilol 25 MG TAB PO SCH ×2 (14:41→18:32)
[2021-09-02] MEDS: Triple Antibiotic Oint 1 GM Packet TOP SCH (14:45)
[2021-09-02] MEDS: hydrALAZINE 25 MG TAB PO SCH ×2 (14:46→20:54)
[2021-09-02] MEDS: Polyethylene Glycol 3350 17 GM Packet PO SCH (14:48)
[2021-09-02] MEDS: Senokot S 8.6-50 MG TAB PO SCH ×2 (14:48→20:54)
[2021-09-02] MEDS: Aspirin 81 mg Enteric Coated Tablet PO SCH (14:48)
[2021-09-02] MEDS: NIFEdipine XL 30 MG TAB PO SCH (14:48)
[2021-09-02] MEDS: Enoxaparin Sodium 30 MG/0.3 ML SYRINGE SC SCH (14:49)
[2021-09-02] MEDS: Losartan 25 MG TAB PO SCH (14:49)
[2021-09-02] MEDS: Clopidogrel Bisulfate 75 MG TAB PO SCH (14:49)
[2021-09-02] MEDS: Cefepime 1 GM in Sodium Chloride 0.9% 100 ML IVPB SCH (14:50)
[2021-09-02] MEDS: Gabapentin 100 MG CAP PO SCH ×3 (14:50→20:54)
[2021-09-02] MEDS: Insulin Glargine 30 UNITS/0.3 ML VIAL SC SCH (14:52)
[2021-09-02] MEDS: Epoetin (ESRD) 10,000 UNITS/ML VIAL IVP SCH (16:29)
[2021-09-02] MEDS: Iron, Sodium Ferric Gluconate 250 MG in Sodium Chloride 0.9% 250 ML 250 ML IVPB SCH (18:31)
[2021-09-02] MEDS: Nicotine 14 MG PATCH TD SCH (18:32)
[2021-09-02] MEDS: Atorvastatin Calcium 40 MG TAB PO SCH (20:54)
[2021-09-02] MEDS: Famotidine 20 MG TAB PO SCH (20:55)
[2021-09-03] MEDS: NIFEdipine XL 30 MG TAB PO SCH (09:43)
[2021-09-03] MEDS: hydrALAZINE 25 MG TAB PO SCH ×2 (09:43→21:02)
[2021-09-03] MEDS: Losartan 25 MG TAB PO SCH (09:43)
[2021-09-03] MEDS: Aspirin 81 mg Enteric Coated Tablet PO SCH (09:43)
[2021-09-03] MEDS: Gabapentin 100 MG CAP PO SCH (09:44)
[2021-09-03] MEDS: Clopidogrel Bisulfate 75 MG TAB PO SCH (09:44)
[2021-09-03] MEDS: Carvedilol 25 MG TAB PO SCH ×2 (09:44→16:57)
[2021-09-03] MEDS: Enoxaparin Sodium 30 MG/0.3 ML SYRINGE SC SCH (09:45)
[2021-09-03] MEDS: Insulin Glargine 30 UNITS/0.3 ML VIAL SC SCH (09:45)
[2021-09-03] MEDS: Cefepime 1 GM in Sodium Chloride 0.9% 100 ML IVPB SCH (09:52)
[2021-09-03] MEDS: HYDROcodone/Acetaminophen 5/325 mg Tablet PO PRN ×2 (09:53→16:56)
[2021-09-03] MEDS: Triple Antibiotic Oint 1 GM Packet TOP SCH (09:54)
[2021-09-03] MEDS: Polyethylene Glycol 3350 17 GM Packet PO SCH (09:54)
[2021-09-03] MEDS: Senokot S 8.6-50 MG TAB PO SCH ×2 (09:54→21:03)
[2021-09-03] MEDS ORDERED: hydrALAZINE 25 MG TAB PO SCH (14:15)
[2021-09-03] MEDS: Nicotine 14 MG PATCH TD SCH (18:00)
[2021-09-03] MEDS ORDERED: Gabapentin 100 MG CAP PO SCH (21:00)
[2021-09-03] MEDS: Famotidine 20 MG TAB PO SCH (21:02)
[2021-09-03] MEDS: Atorvastatin Calcium 40 MG TAB PO SCH (21:02)
[2021-09-03] MEDS: Fentanyl 100 MCG/2 ML VIAL SLOW IVP PRN (21:11)
[2021-09-04] MEDS: HYDROcodone/Acetaminophen 5/325 mg Tablet PO PRN ×3 (06:00→14:55)
[2021-09-04 06:53] LABS: #Eosinphils 0.1 thou/uL (0.0-0.7); #Lymphocytes 1.3 thou/uL (1.20-3.40); #Monocytes 0.9 thou/uL (0.11-0.59); %Basophils 0.1 % (0.0-1.0); %Eosinophils 0.6 % (0.0-10.0); %Lymphocytes 12.7 % (21.0-51.0); %Monocytes 9.1 % (0.0-10.0); %Neutrophils 77.5 % (42.0-75.0); Hemoglobin 8.3 g/dL (12.0-16.0); Mean Corpuscular HGB CONC 30.9 g/dL (32.0-36.0); Mean Corpuscular Hemoglobin 28.1 pg (27.0-31.0); Mean Corpuscular Volume 90.8 fL (78.0-98.0); Platelet Count 370 thou/uL (130-400); RBC Distribution Width 15.4 % (11.5-14.5); Red Blood Cell (RBC) Count 2.94 mill/uL (4.20-5.40); White Blood Cell (WBC) Count 10.3 thou/uL (4.8-10.8)
[2021-09-04 07:14] LABS: Anion Gap 18 mmol/L (10-20); BUN (Urea Nitrogen) 57 mg/dL (9.8-20.1); Calc. Creatinine Clearance 11 mL/min (70-130); Calcium 8.1 mg/dL (7.8-10.44); Carbon Dioxide 24 mmol/L (23-31); Chloride 95 mmol/L (98-107); Glucose 209 mg/dL (80-115); Potassium 3.5 mmol/L (3.5-5.1); Sodium 133 mmol/L (136-145)
[2021-09-04 07:43] LABS: Vancomycin, Random 14.2 ug/mL (See Comment)
[2021-09-04] MEDS ORDERED: Heparin 10,000 UNITS/ 10 ML VIAL ONE (08:39)
[2021-09-04] MEDS: Epoetin (ESRD) 10,000 UNITS/ML VIAL IVP SCH (15:00)
[2021-09-04] MEDS: Cefepime 1 GM in Sodium Chloride 0.9% 100 ML IVPB SCH (15:09)
[2021-09-04] MEDS: Senokot S 8.6-50 MG TAB PO SCH (15:10)
[2021-09-04] MEDS: Insulin Glargine 30 UNITS/0.3 ML VIAL SC SCH (15:10)
[2021-09-04] MEDS: Aspirin 81 mg Enteric Coated Tablet PO SCH (15:11)
[2021-09-04] MEDS: NIFEdipine XL 30 MG TAB PO SCH (15:11)
[2021-09-04] MEDS: Losartan 25 MG TAB PO SCH (15:11)
[2021-09-04] MEDS: hydrALAZINE 25 MG TAB PO SCH (15:12)
[2021-09-04] MEDS: Clopidogrel Bisulfate 75 MG TAB PO SCH (15:13)
[2021-09-04] MEDS: Enoxaparin Sodium 30 MG/0.3 ML SYRINGE SC SCH (15:13)
[2021-09-04] MEDS: Triple Antibiotic Oint 1 GM Packet TOP SCH (15:13)
[2021-09-04] MEDS: Carvedilol 25 MG TAB PO SCH ×2 (15:13)
[2021-09-04] MEDS: Polyethylene Glycol 3350 17 GM Packet PO SCH (15:14)
[2021-09-04 16:46] VITALS: BP 110/70; TEMP 99
[2021-09-04] MEDS ORDERED: Vancomycin HCl 750 MG in Sodium Chloride 0.9% 250 ML 250 ML IVPB SCH (17:00)
[2021-09-04] MEDS: Iron, Sodium Ferric Gluconate 250 MG in Sodium Chloride 0.9% 250 ML 250 ML IVPB SCH (18:27)
[2021-09-04] MEDS: Nicotine 14 MG PATCH TD SCH (18:27)
[2021-09-04 21:08] LABS: SARS-CoV-2 PCR by NAA DETECTED (NotDetected)
== END 2021-09-04 19:05 | DRG 239 ==
LOC: ERS 13:13 → SURG A 16:13 → 2NO 08-30 19:17
PROVIDERS: ADMIT Family Medicine; ATTEND Internal Medicine
PROC: 0Y6J0Z1 Detachment at Left Lower Leg, High, Open Approach (ICD-10-PCS; principal; 2021-08-23)
PROC: 031C0ZF Bypass Left Radial Artery to Lower Arm Vein, Open Approach (ICD-10-PCS; 2021-08-23)
PROC: 30233N1 Transfusion of Nonautologous Red Blood Cells into Peripheral Vein, Percutaneous Approach (ICD-10-PCS; 2021-08-23)
PROC: 02HV33Z Insertion of Infusion Device into Superior Vena Cava, Percutaneous Approach (ICD-10-PCS; 2021-08-23)
PROC: B548ZZA Ultrasonography of Superior Vena Cava, Guidance (ICD-10-PCS; 2021-08-23)
PROC: 5A1D70Z Performance of Urinary Filtration, Intermittent, Less than 6 Hours Per Day (ICD-10-PCS; 2021-08-24)
PROC: 5A1D70Z Performance of Urinary Filtration, Intermittent, Less than 6 Hours Per Day (ICD-10-PCS; 2021-08-26)
PROC: B4101ZZ Fluoroscopy of Abdominal Aorta using Low Osmolar Contrast (ICD-10-PCS; 2021-08-27)
PROC: B41F1ZZ Fluoroscopy of Right Lower Extremity Arteries using Low Osmolar Contrast (ICD-10-PCS; 2021-08-27)
PROC: 5A1D70Z Performance of Urinary Filtration, Intermittent, Less than 6 Hours Per Day (ICD-10-PCS; 2021-08-28)
PROC: 0Y6H0Z1 Detachment at Right Lower Leg, High, Open Approach (ICD-10-PCS; 2021-08-29)
PROC: 5A1D70Z Performance of Urinary Filtration, Intermittent, Less than 6 Hours Per Day (ICD-10-PCS; 2021-08-30)
PROC: 5A1D70Z Performance of Urinary Filtration, Intermittent, Less than 6 Hours Per Day (ICD-10-PCS; 2021-09-02)
PROC: 5A1D70Z Performance of Urinary Filtration, Intermittent, Less than 6 Hours Per Day (ICD-10-PCS; 2021-09-04)
DX: E11.51 Type 2 diabetes mellitus with diabetic peripheral angiopathy without gangrene (principal); G93.41 Metabolic encephalopathy; I63.9 Cerebral infarction, unspecified; N18.6 End stage renal disease; I12.0 Hypertensive chronic kidney disease with stage 5 chronic kidney disease or end stage renal disease; L97.419 Non-pressure chronic ulcer of right heel and midfoot with unspecified severity; J98.11 Atelectasis; E11.621 Type 2 diabetes mellitus with foot ulcer; L97.521 Non-pressure chronic ulcer of other part of left foot limited to breakdown of skin; F41.9 Anxiety disorder, unspecified; F32.A Depression, unspecified; E87.6 Hypokalemia; D63.1 Anemia in chronic kidney disease; D63.8 Anemia in other chronic diseases classified elsewhere; E88.09 Other disorders of plasma-protein metabolism, not elsewhere classified; M48.07 Spinal stenosis, lumbosacral region; Z20.822 Contact with and (suspected) exposure to COVID-19; L89.899 Pressure ulcer of other site, unspecified stage; Z68.25 Body mass index [BMI] 25.0-25.9, adult; E11.649 Type 2 diabetes mellitus with hypoglycemia without coma; E66.9 Obesity, unspecified; I16.0 Hypertensive urgency; Z66 Do not resuscitate; E11.22 Type 2 diabetes mellitus with diabetic chronic kidney disease; I65.22 Occlusion and stenosis of left carotid artery; Z79.899 Other long term (current) drug therapy; Z79.82 Long term (current) use of aspirin; Z87.891 Personal history of nicotine dependence; Z86.73 Personal history of transient ischemic attack (TIA), and cerebral infarction without residual deficits; Z79.4 Long term (current) use of insulin; Z88.2 Allergy status to sulfonamides; Z99.2 Dependence on renal dialysis
CPT/HCPCS: 36140; 36245; 36246; 36415; 36416; 36430; 36600; 70450; 70551; 71045; 72148; 75630; 75710; 75736; 80048; 80053; 80202; 82553; 82728; 82805; 83540; 83550; 84484; 85025; 85379; 86706; 86850; 86900; 86901; 87040; 87340; 88307; 88311; 90935; 93005; C1751; C1776; G0257; J0360; J0692; J1642; J1644; J1650; J1815; J2250; J2370; J2405; J2704; J2720; J2916; J3010; J3370; J3490; J7050; P9016; Q4081; Q9967; S0020; U0002; U0003; U0005